=== PATIENT | male | born 1970 | race Caucasian/White ===

== ENCOUNTER 2020-10-30 09:21 | Outpatient (CLI) | payer OTHER | END 2020-10-30 23:59 | disposition home or self-care (01) | LOC: RAD 09:21 | PROVIDERS: ATTEND Orthopaedic Surgery | DX: M19.072 Primary osteoarthritis, left ankle and foot (principal); M19.071 Primary osteoarthritis, right ankle and foot | CPT/HCPCS: 73620 ==

== ENCOUNTER 2022-09-03 22:15 | Emergency (ER) | payer OTHER, BC ==
[~2022-09-03] VITALS: Ht 170.2 cm; Wt 93.0 kg
[2022-09-03 22:19] VITALS: BP 133/85
[2022-09-03 22:43] LABS: BASOPHILS # (AUTO) 0.1 X10'3 (0-0.2); BASOPHILS % (AUTO) 0.4 % (0-1); EOSINOPHILS # (AUTO) 0.1 X10'3 (0-0.9); EOSINOPHILS % (AUTO) 0.5 % (0-6); HEMATOCRIT 44.1 % (42.0-52.0); HEMOGLOBIN 14.9 g/dl (14.0-17.9); LYMPHOCYTES # (AUTO) 2.8 X10'3 (1.1-4.8); LYMPHOCYTES % (AUTO) 19.5 % (21-51); MEAN CORPUSCULAR HEMOGLOBIN 30.1 PG (27.0-31.0); MEAN CORPUSCULAR HGB CONC 33.7 g/dL (33.0-36.5); MEAN CORPUSCULAR VOLUME 89.3 FL (78-98); MEAN PLATELET VOLUME 6.9 FL (7.4-10.4); MONOCYTES # (AUTO) 1.2 X10'3 (0-0.9); MONOCYTES % (AUTO) 8.5 % (2-12); NEUTROPHILS % (AUTO) 71.1 % (42-75); PLATELET COUNT 249 X10'3 (140-440); RED BLOOD COUNT 4.94 X10'6 (4.70-6.10); RED CELL DISTRIBUTION WIDTH 13.4 % (11.5-14.5); WHITE BLOOD COUNT 14.1 X10'3 (4.5-11.0)
[2022-09-03 23:00] LABS: ALANINE AMINOTRANSFERASE 42 U/L (12-78); ALBUMIN 4.2 G/DL (3.4-5.0); ALBUMIN/GLOBULIN RATIO 1.1 (1.1-1.5); ALKALINE PHOSPHATASE 97 IU/L (46-116); ANION GAP 11 (8-16); ASPARTATE AMINO TRANSFERASE 24 U/L (10-37); BILIRUBIN,TOTAL 0.5 MG/DL (0.1-1.0); BLOOD UREA NITROGEN 14 MG/DL (7-18); BUN/CREATININE RATIO 12.1 (5.4-32.0); CALCIUM 10.5 MG/DL (8.5-10.1); CHLORIDE 98 MMOL/L (99-107); CREATININE 1.16 MG/DL (0.60-1.10); GLUCOSE 145 MG/DL (70-104); LIPASE 69 U/L (73-393); POTASSIUM 3.9 MMOL/L (3.5-5.1); SODIUM 135 MMOL/L (135-145); TOTAL CARBON DIOXIDE 26.3 MMOL/L (24-32); eGFR 66 ML/MIN
[2022-09-03] MEDS ORDERED: pantoprazole 40mg Tablet.DR PO SCH (23:00)
[2022-09-03] MEDS ORDERED: ondansetron 4mg rapidly disintigrating tab PO ONE (23:05)
[2022-09-03] MEDS ORDERED: ONDA4TAB12 PO (23:29)
[2022-09-03] MEDS ORDERED: PANT20TA18 PO (23:29)
== END 2022-09-03 23:44 | disposition home or self-care (01) ==
LOC: ER 22:16
DX: A08.4 Viral intestinal infection, unspecified (principal); K92.0 Hematemesis; Z79.899 Other long term (current) drug therapy
CPT/HCPCS: 36415; 80053; 83690; 85025; 99283; 99284